=== PATIENT | female | born 1950 | race Two or more races ===

== ENCOUNTER 2021-09-07 06:54 | Day surgery (SDC) | payer OTHER, MEDICAID ==
[~2021-09-07] VITALS: Ht 160 cm; Wt 86.2 kg
[2021-09-07] MEDS ORDERED: IODIXANOL 320MG/ML 100ML BTL IV ONE (07:58)
[2021-09-07] MEDS ORDERED: HEPARIN IN NS 1000Units/500mL 1,500 ML ONE (07:58)
[2021-09-07] MEDS ORDERED: ANGIOMAX 250 MG VIAL IV ONE (09:02)
[2021-09-07] MEDS ORDERED: VERAPAMIL 2.5MG/ML INJ 2ML VIAL IV ONE (09:02)
[2021-09-07] MEDS ORDERED: MIDAZOLAM HCL 2MG/2ML 2ml VIAL (1mg/ml) ONE (09:03)
[2021-09-07] MEDS ORDERED: fentaNYL CITRATE 100 MCG/2 ML VL ONE (09:03)
[2021-09-07] MEDS ORDERED: LIDOCAINE 2%HCL (LOCAL ANESTH.) INJ 10ml MDV ONE ×3 (09:03→09:56)
[2021-09-07] MEDS ORDERED: SODIUM CHL 0.9% 0 ML ONE (09:03)
[2021-09-07] MEDS ORDERED: HEPARIN SODIUM (PORCINE) 5000 UNITS/ML 1ML VIAL ONE (09:04)
[2021-09-07] MEDS ORDERED: hydrALAZINE HCL 20 MG/ML VL ONE (10:12)
[2021-09-07] MEDS ORDERED: PRAV20TA3 GT (12:24)
[2021-09-07] MEDS ORDERED: POTA1080 PO (12:24)
[2021-09-07] MEDS ORDERED: METF-371 PO (12:24)
[2021-09-07] MEDS ORDERED: METO25TA93 PO (12:24)
[2021-09-07] MEDS ORDERED: CLOP75TA70 PO (12:24)
[2021-09-07] MEDS ORDERED: TART1200 PO (12:24)
[2021-09-07] MEDS ORDERED: [UNRECOGNIZED DRUG - CODE] PO (12:24)
[2021-09-07] MEDS ORDERED: ZINC220C8 PO (12:24)
== END 2021-09-07 14:10 | disposition home or self-care (01) ==
LOC: CATH 06:54
PROVIDERS: ATTEND Internal Medicine Cardiovascular Disease
DX: R94.39 Abnormal result of other cardiovascular function study (principal); I25.10 Atherosclerotic heart disease of native coronary artery without angina pectoris; I10 Essential (primary) hypertension; E11.51 Type 2 diabetes mellitus with diabetic peripheral angiopathy without gangrene; E66.01 Morbid (severe) obesity due to excess calories; Z87.891 Personal history of nicotine dependence; Z20.822 Contact with and (suspected) exposure to COVID-19; Z68.33 Body mass index [BMI] 33.0-33.9, adult
CPT/HCPCS: 93458; C1760; C1769; C1887; C1894; C9803; J0360; J1644; J2001; J2250; J3010; J7030; Q9967; U0003; 99152; 99153

== ENCOUNTER 2024-11-12 06:53 | Inpatient (IN) | payer OTHER, MEDICAID ==
[2024-11-12] VITALS (14 sets, daily range): BP systolic 81–115; BP diastolic 40–84; PULSE 71–98; RESP 12–23; TEMP 98.4; O2SAT 92–98
[~2024-11-12] VITALS: Ht 160 cm; Wt 83.8 kg
[~2024-11-12 06:53] MED LIST: ASPI-543 PO; CLOP75TA70 PO; EMPA1TAB PO; MAGN400C3 PO; METF-371 PO; METO25TA93 PO; NITR0.4S29 SL; POTA1080 PO; PRAV20TA3 GT; RANO500T3 PO; [UNRECOGNIZED DRUG - CODE] PO
[2024-11-12] MEDS: IODIXANOL 320MG/ML 100ML BTL IV ONE ×2 (07:22→09:27)
[2024-11-12] MEDS: HEPARIN SODIUM (PORCINE) 5000 UNITS/ML 1ML VIAL ONE (08:20)
[2024-11-12] MEDS: VERAPAMIL 2.5MG/ML INJ 2ML VIAL IV ONE (08:20)
[2024-11-12] MEDS: MIDAZOLAM HCL 2MG/2ML 2ml VIAL (1mg/ml) ONE (08:20)
[2024-11-12] MEDS: fentaNYL CITRATE 100 MCG/2 ML VL ONE (08:20)
[2024-11-12] MEDS: ANGIOMAX 250 MG VIAL IV ONE (08:20)
[2024-11-12] MEDS: SODIUM CHL 0.9% 0 ML ONE (08:21)
[2024-11-12] MEDS: LIDOCAINE 2%HCL (LOCAL ANESTH.) INJ 20ML MDV ONE (08:21)
--- NOTE | 2024-11-12 09:58 | DVHOP2 ---
Operative Report - 2 Report Details Date: 11/12/24 Preop Diagnosis: Severe peripheral vascular disease Postop Diagnosis: Severe peripheral vascular disease Surgeon: Petty Salmeron MD Anesthesiologist: Conscious sedation Anesthesia: Mac, Local Consent: The patient was informed of the risks and benefits of the procedure. These incl ude but are not limited to complications of anesthesia, postoperative infection, incomplete relief of symptoms, recurrence of symptoms, damage to blood vessels, nerves and tendons, deep venous thrombosis, pulmonary embolism and possible need for repeat surgery in the future. Complications: No complications Findings: Severe left main disease. Occluded innominate artery. Occluded left subclavian. Occluded right superficial femoral artery. Indications for Surgery: Chest pain Name of Procedure Performed Left heart catheterization bilateral cine coronary angiography. Left ventriculography. Aortography. Procedure Details Procedure Details: Prior local anesthesia with 2% lidocaine to the right wrist and full informed consent obtained the patient was prepped and draped in usual fashion followed by placement of a six Danish sheath into the right radial artery. We placed a multipurpose catheter into the right radial artery and attempted to pass a wire beyond the subclavian / innominate artery. We were not able to get through. We then accessed the right femoral artery under fluoroscopic and ultrasound guidance as well and placed sheath into the right femoral artery. We passed Sheree catheters to cannulate both right and left coronary ostia and a pigtail catheter for ventriculography and aortography. Hemodynamics: Aortic blood pressure was notably elevated at one 190/100. Right radial and brachial pressures were 90/50. End-diastolic pressure was 15. There was no gradient across the aortic valve on pullback. Coronary anatomy: The RCA is a nondominant vessel and is normal. The left main has a critical stenosis of about 85% ostial left main. The LAD diagonals circumflex are all normal with only moderate plaquing. There is a left dominant system with the PDA being normal as well. Diagonals septals are normal as are marginals. 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 Patent left common carotid. Retrograde filling of the vertebrals bilaterally. Occluded left subclavian. Occluded right superficial femoral artery beyond the bifurcation of the profunda. Ventriculography in the CHARLES projection shows an EF of about 60% without regional wall motion abnormalities Impression severe left main disease. 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 Right iliac lesion of about 75-80%. Recommendations: We will request consultation with vascular surgery. Consider left main stenting given her significant peripheral vascular disease. Consider revascularization of subclavian and innominate. We will schedule SFA lesion as an outpatient. Condition Good Disposition Still a Patient Date of Service: November 12, 2024 Billing Provider: PETTY SALMERON Sr., MD Cardiology Common Codes: [id number] INP/OBS CARE (High) ( left heart catheterization. Bilateral cine coronary angiography. Left ventriculography. Aortography. Iliac angiography. Femoral artery angiography. Right subclavian angiography.) PETTY SALMERON Sr., MD November 12, 2024 09:58
[2024-11-12] MEDS: hydrALAZINE HCL 20 MG/ML VL ONE (10:01)
[2024-11-12] MEDS ORDERED: ONDANSETRON HCL 4 MG/2 ML VIAL IV PRN (15:45)
[2024-11-12] MEDS: SODIUM CHLORIDE 0.9% 1,000 ML IV SCH (15:59)
--- NOTE | 2024-11-12 16:05 | DVHHP2 ---
History of Present Illness Reason for Visit: Post angiogram medical management History of Present Illness This is a 73-year-old female with hypertension hypercholesterolemia chest pain with a came to the hospital underwent a elective left heart catheterization by Dr. Salmeron. Subsequently patient is being admitted to the hospital for post coronary angiogram management and further evaluation. Please see the detailed left heart catheterization report dictated by Dr. Salmeron Cardiovascular: CAD, HTN, hyperipidemia, Other (Peripheral arterial disease) Past Surgical History: None Family History: Hyperlipidemia, Hypertension Smoke: No ALCOHOL: occassional Lives: with Family Review of Systems Review of Systems No fevers chills or sweats. No headache dizziness or lightheadedness. Other review of systems reviewed normal. Allergies: Uncoded Allergies: NONE (Allergy, Unknown, 09/05/21) Medications Current Medications Medications Dose Ordered Sig/Clary Route Start Time Stop Time Status Last Admin Dose Admin Aspirin 81 mg DAILY PO 11/13/24 10:00 Pravastatin Sodium 10 mg HS GT 11/12/24 22:00 Ranolazine 500 mg BID PO 11/12/24 22:00 Metoprolol Tartrate 12.5 mg BID PO 11/12/24 22:00 Ondansetron HCl 4 mg Q4HPRN PRN IV 11/12/24 15:45 Famotidine 20 mg DAILY PO 11/13/24 10:00 UNV Sodium Chloride 1,000 ml @ 75 mls/hr [id number] IV 11/12/24 15:45 Enoxaparin Sodium 40 mg DAILY SC 11/13/24 10:00 UNV Exam Vital Signs Vital Signs Date Time Temp Pulse Resp B/P (MAP) Pulse Ox O2 Delivery O2 Flow Rate FiO2 11/12/24 13:30 76 22 94/58 (70) 93 11/12/24 10:38 98.4 98.4 General Appearance: Alert, Oriented X3, No acute distress HEENT: Atraumatic, PERRLA Respiratory: Clear to auscultation, Normal air movement Cardiovascular: Regular rate, Normal S1, Normal S2, No murmurs Abdominal: Normal bowel sounds, Soft, No tenderness Extremities: No clubbing, No edema Neuro: Normal speech Labs/Xrays Labs Test 11/12/24 10:09 Range/Units POC Glucose 98 70-106 mg/dl Assessment/Plan Assessment/Plan Coronary artery rate was vascular disease Status post coronary angiogram showing left main disease Peripheral arterial/femoral arterial stenosis Hyperlipidemia Hypertension Patient in the recovery room [employer]. Low normal blood pressure. Patient is admitted to telemetry floor by erector operator. I will be managing this patient for any medical issues while she is in the hospital. I will start her on IV fluids. Follow the labs in the morning. Resume home medications. Beta-clayton to hold for systolic less than 95. Otherwise continue rest of supportive care and treatment. Follow clinical management per clinical course and post angiogram recovery and recommendations from the Cardiology. Discussed with the nurse regarding care plan. Plan discussed with: Other My Orders Orders - FOX MCMULLEN MD Procedure Category Date Status Time Aspirin Enteric PHA 11/13/24 In Process Coated Tablet 10:00 Ranolazine (Ranexa Er) PHA 11/12/24 In Process 22:00 Metoprolol Tartrate PHA 11/12/24 In Process Tablet (Lopressor Ta 22:00 Ondansetron Hcl PHA 11/12/24 In Process (Zofran) 15:45 Famotidine Tablet PHA 11/13/24 Logged (Pepcid Tablet) 10:00 Complete Blood Count LAB 11/13/24 Verified 04:00 Basic Metabolic Panel LAB 11/13/24 Verified 04:00 Magnesium LAB 11/13/24 Verified 04:00 Sodium Chloride 0.9% PHA 11/12/24 In Process 15:45 Pravastatin Sodium PHA 11/12/24 In Process Tablet (Pravachol Tab 22:00 Enoxaparin Sodium PHA 11/13/24 Logged (Lovenox) 10:00 PTPTT LAB 11/13/24 Verified 04:00 FOX MCMULLEN MD November 12, 2024 16:05
[2024-11-12] MEDS: PRAVASTATIN SODIUM 20 MG TAB GT SCH (22:22)
[2024-11-12] MEDS: RANOLAZINE ER 500 MG TAB PO SCH (22:23)
[2024-11-12] MEDS: METOPROLOL TARTRATE 25 MG TAB PO SCH (22:24)
[2024-11-13] VITALS (9 sets, daily range): BP systolic 80–99; BP diastolic 46–59; PULSE 65–80; RESP 16–18; TEMP 97.3–98.9; O2SAT 94–98
[2024-11-13] MEDS: ACETAMINOPHEN 325 MG TAB PO PRN (06:06)
[2024-11-13 07:33] LABS: Basophils # (auto) 0 10 ^3/uL (0-0.2); Basophils % (auto) 0.5 % (0.0-2.0); Eosinophils # (auto) 0.3 10 ^3/uL (0-0.8); Eosinophils % (auto) 3.7 % (0.0-7.0); Hemoglobin 14.5 g/dL (12.2-16.2); Lymphocytes # (auto) 2.5 10 ^3/uL (0.4-5.4); Lymphocytes % (auto) 33.2 % (10.0-50.0); Mean Corpuscular Hemoglobin 29.9 pg (28.0-32.0); Mean Corpuscular Hgb Conc. 33.7 g/dL (32.0-36.0); Mean Corpuscular Volume 88.7 fL (80.0-100.0); Monocytes # (auto) 0.7 10 ^3/uL (0-1.3); Monocytes % (auto) 9.3 % (0.0-12.0); Neutrophils % (auto) 53.3 % (37.0-80.0); Platelet Count (auto) 209 10^3/uL (140-450); Red Blood Cells 4.85 10^6/uL (4.0-5.20); Red Cell Distribution Width 14.3 % (11.8-14.3); White Blood Cell 7.5 10^3/uL (4.4-10.8)
[2024-11-13 07:39] LABS: Partial Thromboplastin Time 25.6 SEC (24.5-34.5); Prothrombin Time 10.6 sec (9.3-11.8)
[2024-11-13 07:46] LABS: Anion Gap 10 (5-15); Carbon Dioxide 27 mmol/L (20-31); Potassium 4.3 mmol/L (3.5-5.1)
[2024-11-13 07:47] LABS: Calcium 10.1 mg/dL (8.7-10.4); Chloride 109 mmol/L (98-107); Sodium 146 mmol/L (136-145)
[2024-11-13 07:52] LABS: BUN/Creatinine Ratio 15.8 (10.0-20.0); Blood Urea Nitrogen 15 mg/dL (9-23)
[2024-11-13 07:55] LABS: Glucose 123 mg/dL (74-106)
[2024-11-13] MEDS: ASPirin-EC 81 mg tab PO SCH (11:04)
[2024-11-13] MEDS: ENOXAPARIN SOD 40 MG/0.4 ML SYRINGE SC SCH (11:04)
[2024-11-13] MEDS: FAMOTIDINE 20 MG TAB PO SCH (11:04)
--- NOTE | 2024-11-13 14:22 | DVHPN2 ---
Progress Note - Dictate Date Seen: November 13, 2024 Medical Necessity Reason Pt with a Central, PICC or Fol: No Subjective Status post coronary angiogram yesterday. Clinically stable. Denies any complaints. 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 vital signs Vital Sign Date Time Temp Pulse Resp B/P (MAP) Pulse Ox O2 Delivery O2 Flow Rate FiO2 11/13/24 10:00 67 83/46 11/13/24 08:30 98.7 18 97 98.7 11/13/24 08:08 Room Air* 0 21 Total Intake and Output 11/12/24 11/12/24 11/13/24 15:00 23:00 07:00 Intake Total 150 ml 240 ml Output Total 350 ml Balance 150 ml -110 ml medications Current Medications Medications Dose Ordered Sig/Clary Route Start Time Stop Time Status Last Admin Dose Admin Aspirin 81 mg DAILY PO 11/13/24 10:00 11/13/24 11:04 81 MG Pravastatin Sodium 10 mg HS GT 11/12/24 22:00 11/12/24 22:22 10 MG Ranolazine 500 mg BID PO 11/12/24 22:00 11/13/24 11:04 500 MG Metoprolol Tartrate 12.5 mg BID PO 11/12/24 22:00 11/12/24 22:24 12.5 MG Ondansetron HCl 4 mg Q4HPRN PRN IV 11/12/24 15:45 Famotidine 20 mg DAILY PO 11/13/24 10:00 11/13/24 11:04 20 MG Sodium Chloride 1,000 ml @ 75 mls/hr [id number] IV 11/12/24 15:45 11/12/24 15:59 75 MLS/HR Enoxaparin Sodium 40 mg DAILY SC 11/13/24 10:00 11/13/24 11:04 40 MG Acetaminophen 650 mg Q6HP PRN PO 11/13/24 03:45 11/13/24 11:20 650 MG objective Alert awake oriented x3. In bed without distress. HEENT neck supple no JVD. Heart regular rate and rhythm S1-S2. Lungs without rales wheezes. Abdomen soft obese positive bowel sounds. Extremities no edema positive pulses laboratory and microbiology Laboratory Tests 11/13/24 06:31 Test 11/13/24 06:31 Range/Units Serum Glucose 123 H 74-106 mg/dL Assessment/Plan Atherosclerotic coronary artery vascular disease Status post coronary angiogram showing multivessel disease/stenosis Obesity with a BMI 33 Diabetes mellitus type 2 Hyperlipidemia She is clinically stable post coronary angiogram. Continue current anticoagulation and antiplatelet therapy as she is on. Further clinical management per clinical course and recommendations from hydro generation supervisor. Discussed with the patient at bedside regarding care plan. Plan discussed with: Patient FOX MCMULLEN MD November 13, 2024 14:22
--- NOTE | 2024-11-13 14:47 | DVHPN2 ---
Consult Progress Note Subjective Other Systems: In normal sinus rhythm with depressed T-waves on monitoring and evaluation advisor Denies any cardiac symptoms at time of assessment Objective vital signs Vital Sign Date Time Temp Pulse Resp B/P (MAP) Pulse Ox O2 Delivery O2 Flow Rate FiO2 11/13/24 10:00 67 83/46 11/13/24 08:30 98.7 18 97 98.7 11/13/24 08:08 Room Air* 0 21 Total Intake and Output 11/12/24 11/12/24 11/13/24 15:00 23:00 07:00 Intake Total 150 ml 240 ml Output Total 350 ml Balance 150 ml -110 ml medications Current Medications Medications Dose Ordered Sig/Clary Route Start Time Stop Time Status Last Admin Dose Admin Aspirin 81 mg DAILY PO 11/13/24 10:00 11/13/24 11:04 81 MG Ranolazine 500 mg BID PO 11/12/24 22:00 11/13/24 11:04 500 MG Metoprolol Tartrate 12.5 mg BID PO 11/12/24 22:00 11/12/24 22:24 12.5 MG Ondansetron HCl 4 mg Q4HPRN PRN IV 11/12/24 15:45 Famotidine 20 mg DAILY PO 11/13/24 10:00 11/13/24 11:04 20 MG Sodium Chloride 1,000 ml @ 75 mls/hr [id number] IV 11/12/24 15:45 11/12/24 15:59 75 MLS/HR Enoxaparin Sodium 40 mg DAILY SC 11/13/24 10:00 11/13/24 11:04 40 MG Acetaminophen 650 mg Q6HP PRN PO 11/13/24 03:45 11/13/24 11:20 650 MG Pravastatin Sodium 10 mg HS PO 11/13/24 22:00 UNV Examination: GENERAL:Normal, LUNGS:Normal, CVS:Normal, NEURO:Normal laboratory and microbiology Laboratory Tests 11/13/24 06:31 Test 11/13/24 06:31 Range/Units Serum Glucose 123 H 74-106 mg/dL Problem List/Assessment/Plan Problem List/Assessment/Plan Severe left main disease Severe peripheral vascular disease Rule out structural heart disease Hyperlipidemia Type 2 diabetes mellitus Obesity Plan/recommendations (Dr. Salmeron): The patient underwent a left heart catheterization on 11/12/2024 which revealed severe left main disease, an occluded innominate artery, occluded left subclavian and occluded right superficial femoral artery. We will recommend for the patient to consider left main stenting given her significant peripheral vascular disease. Procedure discussed with the patient full detail including risks and benefits. The patient is agreeable and understands. We will schedule the patient at soonest availability on 10/18/2024. We will obtain a transthoracic echocardiogram to evaluate cardiac function. In the meantime, continue with medical management close cardiac surveillance. Thank you for allowing us to care for this patient. Please call with any questions or concerns. This medical document was created using an electronic medical record system with voice recognition software and computerized dictation system. Although this document has been carefully reviewed, there might still be some phonetic and typographical errors. Occasional wrong-word or ``sound-alike substitutions may have occurred due to the inherent limitations of voice recognition software. These areas are purely typographical due to imperfections of the software programs and do not reflect any compromise in the patient's medical care. Please read the chart carefully and recognize, using context, where these substitutions have occurred. Plan discussed with: Patient Date of Service: November 13, 2024 Billing Provider: BETTY QUINTEROS Common Visit Codes: [id number] INP/OBS CARE(HIGH) BETTY QUINTEROS November 13, 2024 14:47
[2024-11-13 14:50] LABS: LDL Cholesterol 73 mg/dL (< 100); Triglycerides 153 mg/dL (< 150)
[2024-11-13 14:51] LABS: Cholesterol 142 mg/dL (< 200); HDL Cholesterol 48 mg/dL (40-59)
[2024-11-13] MEDS: PRAVASTATIN SODIUM 20 MG TAB PO SCH (21:36)
[2024-11-14] VITALS (15 sets, daily range): BP systolic 73–137; BP diastolic 35–75; PULSE 68–88; RESP 16–21; TEMP 97–98; O2SAT 93–98
[2024-11-14 07:50] LABS: Basophils # (auto) 0 10 ^3/uL (0-0.2); Basophils % (auto) 0.4 % (0.0-2.0); Eosinophils # (auto) 0.6 10 ^3/uL (0-0.8); Eosinophils % (auto) 8.9 % (0.0-7.0); Hemoglobin 14.1 g/dL (12.2-16.2); Lymphocytes # (auto) 1.8 10 ^3/uL (0.4-5.4); Lymphocytes % (auto) 28.1 % (10.0-50.0); Mean Corpuscular Hemoglobin 29.6 pg (28.0-32.0); Mean Corpuscular Hgb Conc. 33.6 g/dL (32.0-36.0); Monocytes # (auto) 0.6 10 ^3/uL (0-1.3); Monocytes % (auto) 8.6 % (0.0-12.0); Neutrophils # (auto) 3.5 10 ^3/uL (1.6-8.6); Nucleated Red Blood Cells % 0.2 %; Platelet Count (auto) 186 10^3/uL (140-450); Red Blood Cells 4.78 10^6/uL (4.0-5.20); Red Cell Distribution Width 14.6 % (11.8-14.3); White Blood Cell 6.4 10^3/uL (4.4-10.8)
[2024-11-14 07:55] LABS: Anion Gap 10 (5-15); Carbon Dioxide 22 mmol/L (20-31); Potassium 3.9 mmol/L (3.5-5.1); Sodium 144 mmol/L (136-145)
[2024-11-14 07:56] LABS: Calcium 9.6 mg/dL (8.7-10.4)
[2024-11-14 07:58] LABS: Chloride 112 mmol/L (98-107)
[2024-11-14 08:01] LABS: BUN/Creatinine Ratio 14.5 (10.0-20.0); Blood Urea Nitrogen 12 mg/dL (9-23)
[2024-11-14 08:05] LABS: Glucose 141 mg/dL (74-106)
[2024-11-14] MEDS: IODIXANOL 320MG/ML 100ML BTL IV ONE ×2 (13:41→14:08)
[2024-11-14] MEDS: HEPARIN IN NS 1000Units/500mL 1,500 ML ONE (13:41)
[2024-11-14] MEDS: ANGIOMAX 250 MG VIAL IV ONE (13:48)
[2024-11-14] MEDS: fentaNYL CITRATE 100 MCG/2 ML VL ONE (13:48)
[2024-11-14] MEDS: MIDAZOLAM HCL 2MG/2ML 2ml VIAL (1mg/ml) ONE (13:49)
[2024-11-14] MEDS: SODIUM CHL 0.9% 50 ML ONE (13:49)
[2024-11-14] MEDS: LIDOCAINE 2%HCL (LOCAL ANESTH.) INJ 20ML MDV ONE (13:49)
[2024-11-14] MEDS: EPINEPHrine HCL 1 MG/10 ML SYRG ONE ×2 (14:35→14:36)
--- NOTE | 2024-11-14 14:46 | DVHOP2 ---
Operative Report - 2 Report Details Date: 11/14/24 Preop Diagnosis: SEVERE LEFT MAIN CORONARY STENOSIS Postop Diagnosis: SUCCESSFUL INTRAVASCULAR ULTRASOUND EVALUATION AND STENTING OF PROXIMAL LEFT MAIN Surgeon: Petty Salmeron MD Anesthesiologist: Conscious sedation Anesthesia: Mac, Local Consent: The patient was informed of the risks and benefits of the procedure. These include but are not limited to complications of anesthesia, postoperative infection, incomplete relief of symptoms, recurrence of symptoms, damage to blood vessels, nerves and tendons, deep venous thrombosis, pulmonary embolism and possible need for repeat surgery in the future. Complications: No complications Findings: SEVERE OSTIAL LEFT MAIN STENOSIS Indications for Surgery: Chest pain Name of Procedure Performed PTCA and stenting of left main coronary artery. Intravascular ultrasound of left main coronary artery Procedure Details Procedure Details: Prior local anesthesia with 2% lidocaine to the right groin and full informed consent obtained the patient was prepped and draped in usual fashion followed by a seven Sami sheath placed in the right femoral artery under fluoroscopic and ultrasound guidance. We then placed a six Sami 3-0 EBU guiding catheter into the left main and performed intravascular ultrasound and angiographic evaluation. PTCA and stenting was then performed. Intravascular ultrasound evaluation of the proximal /ostial left main revealed a 3.8 Squared mm area. The indicative of severe ostial left main. With some calcification surrounding the ostium of the left main. There was no significant critical stenosis of the circumflex or LAD as previously mentioned in a recent angiogram. Pre dilatation with a four 0 x 8 mm balloon. We then stented with a 4 mm x 8 mm aranza Medtronic Burton drug-eluting stent. This was deployed with a proximally 15 atmospheres. It was flared in the ostial segment at 15 atmospheres. Intravascular ultrasound post stenting revealed adequate apposition throughout the entirety of the stent. There was excellent antegrade flow. No thrombus formation. No dissection. Impression successful PTCA and stenting intravascular ultrasound evaluation of the ostium of the left main. Recommendations: Dual antiplatelet therapy. Blood pressure control. Condition Good Disposition Still a Patient Date of Service: November 14, 2024 Billing Provider: PETTY SALMERON Sr., MD Cardiology Common Codes: [id number] INP/OBS CARE (High) Cardiology Procedure Codes: 09993 -PTCA W/STENT PLACEMENT ( intravascular ultrasound evaluation of ostium of the left main.) PETTY SALMERON Sr., MD November 14, 2024 14:46
[2024-11-14] MEDS: CLOPIDOGREL BISULFATE 75 MG TAB ONE (14:50)
[2024-11-14] MEDS: hydrALAZINE HCL 20 MG/ML VL ONE (14:50)
--- NOTE | 2024-11-14 15:14 | DVHPN2 ---
Progress Note - Dictate Date Seen: November 14, 2024 Medical Necessity Reason Pt with a Central, PICC or Fol: No Subjective Patient is in the offset label rewinder for staged coronary angiogram with stent placements. Discussed with the roaster supervisor post angiogram today over the phone regarding plan of care. vital signs Vital Sign Date Time Temp Pulse Resp B/P (MAP) Pulse Ox O2 Delivery O2 Flow Rate FiO2 11/14/24 14:50 200/80 11/14/24 13:00 97.4 71 18 95 97.4 11/14/24 08:08 Room Air* 0 21 Total Intake and Output 11/13/24 11/13/24 11/14/24 15:00 23:00 07:00 Intake Total 780 ml 0 ml Balance 780 ml 0 ml medications Current Medications Medications Dose Ordered Sig/Clary Route Start Time Stop Time Status Last Admin Dose Admin Aspirin 81 mg DAILY PO 11/13/24 10:00 11/14/24 08:56 81 MG Ranolazine 500 mg BID PO 11/12/24 22:00 11/14/24 08:56 500 MG Metoprolol Tartrate 12.5 mg BID PO 11/12/24 22:00 11/12/24 22:24 12.5 MG Ondansetron HCl 4 mg Q4HPRN PRN IV 11/12/24 15:45 Famotidine 20 mg DAILY PO 11/13/24 10:00 11/14/24 08:56 20 MG Sodium Chloride 1,000 ml @ 75 mls/hr [id number] IV 11/12/24 15:45 11/12/24 15:59 75 MLS/HR Enoxaparin Sodium 40 mg DAILY SC 11/13/24 10:00 11/13/24 11:04 40 MG Acetaminophen 650 mg Q6HP PRN PO 11/13/24 03:45 11/13/24 21:38 650 MG Pravastatin Sodium 10 mg HS PO 11/13/24 22:00 11/13/24 21:36 10 MG objective Alert awake oriented x3. In bed without distress. HEENT neck supple no JVD. Heart regular rate and rhythm S1-S2. Lungs without rales wheezes. Abdomen soft obese positive bowel sounds. Extremities no edema positive pulses laboratory and microbiology Laboratory Tests 11/14/24 07:13 Test 11/14/24 07:13 Range/Units Serum Glucose 141 H 74-106 mg/dL Assessment/Plan Atherosclerotic coronary artery vascular disease Status post coronary angiogram showing multivessel disease/stenosis Obesity with a BMI 33 Diabetes mellitus type 2 Hyperlipidemia She is clinically stable post coronary angiogram. Continue current anticoagulation and antiplatelet therapy as she is on. Per Cardiology recommendations check blood pressure on the left thigh given she has significant peripheral arterial disease with a and accurate readings apparently from her arms. Patient apparently also has subclavian stenosis as well as lower extremity peripheral arterial stenosis. Recommended to continue statin and dual antiplatelet therapy. Outpatient vascular consultation and follow up. Plan discussed with: Other (Examining Chair Assembler) FOX MCMULLEN MD November 14, 2024 15:14
[2024-11-14] MEDS ORDERED: CLOP75TA70 PO (15:15)
[2024-11-14] MEDS ORDERED: METO25TA93 PO (15:15)
[2024-11-14] MEDS ORDERED: PRAV20TA3 GT (15:15)
[2024-11-14] MEDS ORDERED: RANO500T3 PO (15:15)
[2024-11-14] MEDS ORDERED: ASPI-543 PO (15:15)
--- NOTE | 2024-11-14 16:16 | DVHSR ---
APPROVED REPORT EXAM: Two-dimensional and M-mode echocardiogram with Doppler and color Doppler. Blood Pressure: 128/89 mmHg INDICATION evaluate cardiac function RISK FACTORS Height: 5'3, Weight: 188 DIMENSIONS LVDd3.9 (3.8-5.7cm)LA (2D)4.3 (1.9-4.0cm)Aortic Root2.9 (2.0-3.7cm) LVDs2.7 (2.5-4.0cm)LA (MM) (1.9-4.0cm)Aortic Cusp Exc1.0 (1.5-2.0cm) EF (%) 55.0 (55-70%)Rt. Atrium3.8 (1.9-4.0cm)Asc. Aorta3.5 cm IVSd1.1 (0.7-1.1cm)RV (D)3.7 (1.8-2.4cm) PWd1.5 (0.7-1.1cm) Mitral Valve MitralMitral Stenosis E wave1.00m/sMV Mean GR.mmHg A wave1.16m/sMV Peak GR.35mmHg E/A ratio0.92D MVAcm2 DECEL [id number] 1/2 Timems Aortic Valve Aortic ValveAortic Stenosis V10.75m/Raffi Mean GR.12mmHg V22.21m/Raffi Peak GR.20mmHg LVOT Diameter2.2 (1.8-2.4cm)Doppler AVA1.29cm2 Pulmonic Valve V20.93m/s Tricuspid Valve TR Velocity2.23m/s [id number] Other Information Technically limited study due to body habitus. Conclusion Sinus rhythm. Concentric LVH with left atrial enlargement. Mild aortic sclerosis. Mild mitral annular calcification. Calcified right coronary cusp EF of 50% with impaired diastolic relaxation. Grade diastolic dysfunction. Normal RV function. Mild gradient across the aortic valve of22 mmHg consistent with aortic sclerosis. No pericardial effusion masses or vegetations.
[2024-11-15 01:00] VITALS: BP 131/59; PULSE 75; RESP 18; TEMP 99.9; O2SAT 96
[2024-11-15 05:00] VITALS: BP 112/49; PULSE 73; RESP 17; TEMP 98.2; O2SAT 94
[2024-11-15 06:50] LABS: Potassium 3.8 mmol/L (3.5-5.1); Sodium 143 mmol/L (136-145)
[2024-11-15 06:51] LABS: Anion Gap 8 (5-15); Calcium 9.5 mg/dL (8.7-10.4); Carbon Dioxide 25 mmol/L (20-31)
[2024-11-15 06:53] LABS: Basophils # (auto) 0 10 ^3/uL (0-0.2); Basophils % (auto) 0.3 % (0.0-2.0); Eosinophils # (auto) 0.5 10 ^3/uL (0-0.8); Eosinophils % (auto) 6.1 % (0.0-7.0); Hematocrit 41.7 % (36.0-46.0); Hemoglobin 13.8 g/dL (12.2-16.2); Lymphocytes # (auto) 1.7 10 ^3/uL (0.4-5.4); Lymphocytes % (auto) 21.5 % (10.0-50.0); Mean Corpuscular Hemoglobin 29.2 pg (28.0-32.0); Mean Corpuscular Hgb Conc. 33.2 g/dL (32.0-36.0); Monocytes # (auto) 0.7 10 ^3/uL (0-1.3); Monocytes % (auto) 8.7 % (0.0-12.0); Neutrophils # (auto) 5.1 10 ^3/uL (1.6-8.6); Neutrophils % (auto) 63.4 % (37.0-80.0); Platelet Count (auto) 189 10^3/uL (140-450); Red Blood Cells 4.73 10^6/uL (4.0-5.20); Red Cell Distribution Width 14.8 % (11.8-14.3); White Blood Cell 8.1 10^3/uL (4.4-10.8)
[2024-11-15 06:56] LABS: BUN/Creatinine Ratio 12.2 (10.0-20.0); Blood Urea Nitrogen 11 mg/dL (9-23)
[2024-11-15 06:57] LABS: Chloride 110 mmol/L (98-107); Glucose 120 mg/dL (74-106)
[2024-11-15 08:00] VITALS: PULSE 73
[2024-11-15 08:48] VITALS: BP 147/66; PULSE 70; RESP 16; TEMP 98; O2SAT 96
[2024-11-15] MEDS: CLOPIDOGREL BISULFATE 75 MG TAB PO SCH (10:31)
--- NOTE | 2024-11-15 10:55 | DVHDS2 ---
Discharge Summary Date of Admission November 12, 2024 at 08:36 Date of Discharge: November 15, 2024 Labs/Diagnostic Data: Laboratory Results Test 11/15/24 06:01 11/13/24 06:31 11/12/24 10:09 White Blood Count 8.1 10^3/uL (4.4-10.8) Red Blood Count 4.73 10^6/uL (4.0-5.20) Hemoglobin 13.8 g/dL (12.2-16.2) Hematocrit 41.7 % (36.0-46.0) Mean Corpuscular Volume 88.0 fL (80.0-100.0) Mean Corpuscular Hemoglobin 29.2 pg (28.0-32.0) Mean Corpuscular Hemoglobin Concent 33.2 g/dL (32.0-36.0) Red Cell Distribution Width 14.8 % (11.8-14.3) Platelet Count 189 10^3/uL (140-450) Mean Platelet Volume 8.3 fL (6.9-10.8) Neutrophils (%) (Auto) 63.4 % (37.0-80.0) Lymphocytes (%) (Auto) 21.5 % (10.0-50.0) Monocytes (%) (Auto) 8.7 % (0.0-12.0) Eosinophils (%) (Auto) 6.1 % (0.0-7.0) Basophils (%) (Auto) 0.3 % (0.0-2.0) Neutrophils # (Auto) 5.1 10 ^3/uL (1.6-8.6) Lymphocytes # (Auto) 1.7 10 ^3/uL (0.4-5.4) Monocytes # (Auto) 0.7 10 ^3/uL (0-1.3) Eosinophils # (Auto) 0.5 10 ^3/uL (0-0.8) Basophils # (Auto) 0 10 ^3/uL (0-0.2) Nucleated Red Blood Cells 0.0 % Sodium Level 143 mmol/L (136-145) Potassium Level 3.8 mmol/L (3.5-5.1) Chloride Level 110 mmol/L (98-107) Carbon Dioxide Level 25 mmol/L (20-31) Anion Gap 8 (5-15) Blood Urea Nitrogen 11 mg/dL (9-23) Creatinine 0.90 mg/dL (0.550-1.02) Glomerular Filtration Rate Calc 68 mL/min (>90) BUN/Creatinine Ratio 12.2 (10.0-20.0) Serum Glucose 120 mg/dL (74-106) Calcium Level 9.5 mg/dL (8.7-10.4) Prothrombin Time 10.6 sec (9.3-11.8) Prothrombin Time INR 1.00 (0.9-1.15) Activated Partial Thromboplast Time 25.6 SEC (24.5-34.5) Hemoglobin A1c 6.4 % A1C (<5.7) Magnesium Level 2.0 mg/dL (1.6-2.6) Triglycerides Level 153 mg/dL (< 150) Cholesterol Level 142 mg/dL (< 200) LDL Cholesterol 73 mg/dL (< 100) HDL Cholesterol 48 mg/dL (40-59) POC Glucose 98 mg/dl (70-106) Other Laboratory Tests 11/15/24 06:01 Brief Hx & Hospital Course: This is a 73-year-old female with hypertension hypercholesterolemia chest pain with a came to the hospital underwent a elective left heart catheterization by Dr. Salmeron. Subsequently patient is being admitted to the hospital for post coronary angiogram management and further evaluation. Please see the detailed left heart catheterization report dictated by Dr. Salmeron She is admitted and evaluated by cae engineer. Patient underwent successful us coronary angiogram x2 with a stenting of multiple coronary artery as a staged procedure. Patient had a 1st coronary angiogram on 11/12 and follow up angiogram on 11/14. Patient did well without any acute issues. She is pain- free. Ambulating without any problems. Therefore she is re-evaluated by cae engineer felt she is stable to be discharged home with dual antiplatelet therapy and statin. Patient is otherwise advised aggressive risk factor modification including good blood pressure blood sugar control as well as diet exercise and weight control. Otherwise given no other issues she has been discharged home in stable condition. I have talked with the patient regarding her hospital diagnosis, treatment she received, discharge medications, discharge instructions and follow-up plan of care. She has verbalized understanding of these and agree with the care plan as outlined. Consults/Reason for consult APPROVED REPORT EXAM: Two-dimensional and M-mode echocardiogram with Doppler and color Doppler. Blood Pressure: 128/89 mmHg INDICATION evaluate cardiac function RISK FACTORS Height: 5'3, Weight: 188 DIMENSIONS LVDd 3.9 (3.8-5.7cm) LA (2D) 4.3 (1.9-4.0cm) Aortic Root 2.9 (2.0- 3.7cm) LVDs 2.7 (2.5-4.0cm) LA (MM) (1.9-4.0cm) Aortic Cusp Exc 1.0 (1.5- 2.0cm) EF (%) 55.0 (55-70%) Rt. Atrium 3.8 (1.9-4.0cm) Asc. Aorta 3.5 cm IVSd 1.1 (0.7-1.1cm) RV (D) 3.7 (1.8-2.4cm) PWd 1.5 (0.7-1.1cm) Mitral Valve Mitral Mitral Stenosis E wave 1.00m/s MV Mean GR. mmHg A wave 1.16m/s MV Peak GR. 35mmHg E/A ratio 0.9 2D MVA cm2 DECEL Time 246ms PRESS 1/2 Time ms Aortic Valve Aortic Valve Aortic Stenosis V1 0.75m/s AO Mean GR. 12mmHg V2 2.21m/s AO Peak GR. 20mmHg LVOT Diameter 2.2 (1.8-2.4cm) Doppler SYDNEY 1.29cm2 Pulmonic Valve V2 0.93m/s Tricuspid Valve TR Velocity 2.23m/s RVSP 24mmHg Other Information Technically limited study due to body habitus. Conclusion Sinus rhythm. Concentric LVH with left atrial enlargement. Mild aortic sclerosis. Mild mitral annular calcification. Calcified right coronary cusp EF of 50% with impaired diastolic relaxation. Grade diastolic dysfunction. Normal RV function. Mild gradient across the aortic valve of22 mmHg consistent with aortic sclerosis. No pericardial effusion masses or vegetations. SIGNED BY: PETTY SALMERON Sr., MD SIGNED DATE/TIME: 11/14/24 1616 Operations or Procedures Operative Report - 2 Report Details Date: 11/14/24 Preop Diagnosis: SEVERE LEFT MAIN CORONARY STENOSIS Postop Diagnosis: SUCCESSFUL INTRAVASCULAR ULTRASOUND EVALUATION AND STENTING OF PROXIMAL LEFT MAIN Surgeon: Petty Salmeron MD Anesthesiologist: Conscious sedation Anesthesia: Mac, Local Consent: The patient was informed of the risks and benefits of the procedure. These include but are not limited to complications of anesthesia, postoperative infection, incomplete relief of symptoms, recurrence of symptoms, damage to blood vessels, nerves and tendons, deep venous thrombosis, pulmonary embolism and possible need for repeat surgery in the future. Complications: No complications Findings: SEVERE OSTIAL LEFT MAIN STENOSIS Indications for Surgery: Chest pain Name of Procedure Performed PTCA and stenting of left main coronary artery. Intravascular ultrasound of left main coronary artery Procedure Details Procedure Details: Prior local anesthesia with 2% lidocaine to the right groin and full informed consent obtained the patient was prepped and draped in usual fashion followed by a seven Portuguese sheath placed in the right femoral artery under fluoroscopic and ultrasound guidance. We then placed a six Portuguese 3-0 EBU guiding catheter into the left main and performed intravascular ultrasound and angiographic evaluation. PTCA and stenting was then performed. Intravascular ultrasound evaluation of the proximal /ostial left main revealed a 3.8 Squared mm area. The indicative of severe ostial left main. With some calcification surrounding the ostium of the left main. There was no significant critical stenosis of the circumflex or LAD as previously mentioned in a recent angiogram. Pre dilatation with a four 0 x 8 mm balloon. We then stented with a 4 mm x 8 mm aranza Medtronic Tram drug-eluting stent. This was deployed with a proximally 15 atmospheres. It was flared in the ostial segment at 15 atmospheres. Intravascular ultrasound post stenting revealed adequate apposition throughout the entirety of the stent. There was excellent antegrade flow. No thrombus formation. No dissection. Impression successful PTCA and stenting intravascular ultrasound evaluation of the ostium of the left main. Recommendations: Dual antiplatelet therapy. Blood pressure control. Condition Good Condition at Discharge: Good Final Diagnosis/Problems List SUCCESSFUL INTRAVASCULAR ULTRASOUND EVALUATION AND STENTING OF PROXIMALLEFT MAIN Coronary arteries atherosclerotic vascular disease, status post stent placement, severe peripheral arterial disease, hyperlipidemia, hypertension Discharge Disposition: Home Discharge Instruct/Medications Diet: Consistent carbohydrate, Cardiac 2g Na,low cholest Activity: No Restrictions, As Tolerated Follow Up/Referral: Dr. Salmeron in two weeks and Dr. Amador vascular surgeon in two weeks for carotid artery/peripheral arterial disease evaluation Medications: As prescribed and per discharge med reconciliation list Changed Medications: Pravastatin Sodium (Pravachol Tablet) 20 Mg Tb 20 MG GT DAILY for cholesterol, #60 TAB (Changed from: 10 MG) Continued Medications: Aspirin (Aspir-Low) 81 Mg Tab 81 MG PO DAILY, #60 MG (This prescription has been renewed) Clopidogrel Bisulfate (Clopidogrel) 75 Mg Tab 75 MG PO DAILY for blood thinner, #120 MG (This prescription has been renewed) Empagliflozin (Jardiance) 10 Mg Tab 10 MG PO DAILY for diabetes, TAB Magnesium Oxide (Mg Supplement (Magnesium) 400 Mg Cap 400 MG PO DAILY for supplement, CAP Metformin Hydrochloride (Metformin Hcl) 850 Mg Tab 1000 MG PO BID for diabetes for 30 Days, MG Metoprolol Succinate (Metoprolol Succinate Er) 25 Mg Tab 12.5 MG PO DAILY for htn, #60 MG (This prescription has been renewed) Multiple Vitamins W/ Minerals (Alive Energy 50+) 1 Tab Tab 1 TAB PO DAILY for supplement, TAB Nitroglycerin (Ntrostat Sublingual) 0.4 Mg Sl 0.4 MG SL PRN for chest pain, TAB *MAY REPEAT EVERY 5 MINUTES X 3 TOTAL IF NO RELIEF, INITIATE ANALGESIC THERAPY. NOTIFY PHYSICIAN *Do not crush. Potassium Citrate (Potassium Citrate) 1,080 Mg Tab 99 MG PO DAILY for supplement, TAB Ranolazine (Ranolazine ER) 500 Mg Tab 500 MG PO BID for chest pain, #90 TAB (This prescription has been renewed) Discharge Statement: "Patient was advised to return to the ER or call 911 if any headaches, dizziness, shortness of breath, chest pain, abdominal pain, bleeding, fevers, or worsening of medical condition. Patient was counseled about treatment plan, medications, possible side effects, patientverbalized understanding. All questions were answered to the best of my ability. This discharge took greater then 30 minutes in planning, reviewing documentation, counseling the patient, and discussing with other team members." ASSESSMENT ASSESSMENT Assessment SUCCESSFUL INTRAVASCULAR ULTRASOUND EVALUATION AND STENTING OF PROXIMALLEFT MAIN Coronary arteries atherosclerotic vascular disease, status post stent placement, severe peripheral arterial disease, hyperlipidemia, hypertension FOX MCMULLEN MD November 15, 2024 10:55
[2024-11-15 11:39] VITALS: BP 147/66; PULSE 70; RESP 16; TEMP 98; O2SAT 96
[2024-11-15 13:30] VITALS: BP 107/64; PULSE 66; RESP 16; TEMP 98; O2SAT 94
== END 2024-11-15 14:30 | disposition home or self-care (01) | DRG 322 ==
LOC: CATH 06:53 → OVERFLOW 08:36 → TELE-WESTW 18:49
PROVIDERS: ADMIT Hospitalist; ATTEND Hospitalist
PROC: 4A023N7 Measurement of Cardiac Sampling and Pressure, Left Heart, Percutaneous Approach (ICD-10-PCS; principal; 2024-11-12)
PROC: B211YZZ Fluoroscopy of Multiple Coronary Arteries using Other Contrast (ICD-10-PCS; 2024-11-12)
PROC: B215YZZ Fluoroscopy of Left Heart using Other Contrast (ICD-10-PCS; 2024-11-12)
PROC: B310YZZ Fluoroscopy of Thoracic Aorta using Other Contrast (ICD-10-PCS; 2024-11-12)
PROC: B41FYZZ Fluoroscopy of Right Lower Extremity Arteries using Other Contrast (ICD-10-PCS; 2024-11-12)
PROC: 027034Z Dilation of Coronary Artery, One Artery with Drug-eluting Intraluminal Device, Percutaneous Approach (ICD-10-PCS; 2024-11-14)
PROC: B41GYZZ Fluoroscopy of Left Lower Extremity Arteries using Other Contrast (ICD-10-PCS; 2024-11-14)
PROC: B41FYZZ Fluoroscopy of Right Lower Extremity Arteries using Other Contrast (ICD-10-PCS; 2024-11-14)
PROC: B240ZZ3 Ultrasonography of Single Coronary Artery, Intravascular (ICD-10-PCS; 2024-11-14)
DX: I25.10 Atherosclerotic heart disease of native coronary artery without angina pectoris (principal); I82.B12 Acute embolism and thrombosis of left subclavian vein; I70.201 Unspecified atherosclerosis of native arteries of extremities, right leg; E78.00 Pure hypercholesterolemia, unspecified; I10 Essential (primary) hypertension; E66.9 Obesity, unspecified; E11.9 Type 2 diabetes mellitus without complications; I70.8 Atherosclerosis of other arteries; I70.0 Atherosclerosis of aorta; Z82.49 Family history of ischemic heart disease and other diseases of the circulatory system; Z68.33 Body mass index [BMI] 33.0-33.9, adult; Z79.899 Other long term (current) drug therapy
CPT/HCPCS: 36415; 75710; 80048; 80061; 82962; 83036; 83735; 85025; 85610; 85730; 92928; 92978; 93306; 93458; 93657; 97163; 99152; G0378; J2250; Q9967